=== PATIENT | male | born 1980 | race Caucasian/White ===

== ENCOUNTER 2016-12-30 09:57 | Emergency (ER) | payer BC, OTHER ==
[~2016-12-30] VITALS: Wt 81.0 kg
[2016-12-30] MEDS ORDERED: ALBUTEROL 0.083% (NEB) 2.5 MG/3 ML AMP HHN STA (11:55)
[2016-12-30] MEDS ORDERED: IPRATROPIUM (NEB) 0.5 MG/2.5 ML AMP HHN ONE (12:00)
[2016-12-30] MEDS ORDERED: FLUT9.9S NASAL (12:02)
[2016-12-30] MEDS ORDERED: SODI126M NASAL (12:02)
[2016-12-30] MEDS ORDERED: ALBU18HF INHALATION (12:02)
[2016-12-30] MEDS ORDERED: GUAI473L22 PO (12:02)
--- NOTE | 2016-12-30 12:10 | ERD ---
ER Documentation Chief Complaint Date/Time DATE: 12/30/16 TIME: 12:04 Chief Complaint COUGH AND CONGESTION FOR THE PAST FEW DAYS. NO FEVERS. HPI 36-year-old male complaining of cough and nasal 4-5 days. Cough is nonproductive. Patient reports shortness of breath on exertion. He has on and off chills. He took DayQuil during the day, and NyQuil at night. Patient stated that his roommate has been coughing for the last 3-4 month. There was concern that the roommate may have pertussis. Patient stated that he had last Tdap about 2-3 years ago. ROS All systems reviewed and are negative except as per history of present illness. Medications Home Meds Active Scripts Guaifenesin-Codeine Phosphate* (Guaifenesin* AC Cough Syrup) 473 Ml Liquid, 10 ML PO QHS Y for COUGH, #120 ML Prov:HIRA OCAMPO. CATERER HELPER 12/30/16 Fluticasone Propionate (Flonase Allergy Relief) 9.9 Ml [place].susp, 1 SPRAY NASAL BID, #1 BOTTLE TO EACH NOSTRIL Prov:HIRA OCAMPO. CATERER HELPER 12/30/16 Sodium Chloride (Saline Nasal Mist) 126 Ml Mist, 2 SPRAY NASAL Q2H Y for NASAL CONGESTION, #1 BOTTLE Prov:HIRA OCAMPO CATERER HELPER 12/30/16 Albuterol Sulfate* (Ventolin HFA*) 18 Gm Hfa.aer.ad, 2 PUFF INHALATION Q4H, #1 INHALER Prov:HIRA OCAMPO. CATERER HELPER 12/30/16 Allergies Allergies: Coded Allergies: No Known Allergy (Unverified , 12/30/16) PMhx/Soc Medical and Surgical Hx: pt denies Medical Hx, pt denies Surgical Hx History of Surgery: Yes (kidney stones) Anesthesia Reaction: No Hx Neurological Disorder: No Hx Respiratory Disorders: No Hx Cardiac Disorders: No Hx Psychiatric Problems: No Hx Miscellaneous Medical Probl: No Hx Alcohol Use: Yes Hx Substance Use: No Hx Tobacco Use: No Smoking Status: Never smoker Physical Exam Vitals Vital Signs Date Time Temp Pulse Resp B/P Pulse Ox O2 Delivery O2 Flow Rate FiO2 12/30/16 12:08 85 19 97 21 12/30/16 10:00 98.8 85 20 122/71 98 Physical Exam General: Well-developed, well-nourished, conscious and coherent, in no distress Skin: Warm and dry without rash, good texture and turgor Head: Normocephalic without evidence of trauma Eyes: Sclera and conjunctivae normal; pupils equal, round, and reactive to light; extraocular movements are intact Ears: Canals are patent. Tympanic membranes are clear Nose/Face: Nasal Mucosa erythematous and swollen with clear nasal discharge. Mouth/throat: Mucous membranes are moist. Posterior pharynx clear without erythema or exudates Neck: Supple without meningismus or adenopathy. Carotids are equal. Trachea midline. No bruits or JVD Chest: Normal AP diameter. Good expansion without retractions. Nontender. Lungs are clear to auscultate bilaterally with good tidal volume. Mild wheezing noted in the right upper lobe. Deep breath elicits cough. Heart: Regular rate and rhythm. No murmur, rub, or gallops heard Abdomen: Soft and nontender without masses, guarding, or rebound. Bowel sounds are active. No hepatosplenomegaly Back: Without spinal or CVA tenderness Extremities: Full range of motion. Good strength bilaterally. No clubbing, cyanosis, or edema. Peripheral pulses are intact. Sensation intact Neuro: Alert and oriented 4, GCS 15. Cranial nerves II-XII intact. Motor and sensory exams nonfocal. Moves all extremities. Speech clear. Gait normal Results 24 hrs Current Medications Medications (Trade) Dose Ordered Sig/Freddie Route PRN Reason Start Time Stop Time Status Last Admin Dose Admin Albuterol (Proventil 0.083% (Neb)) 2.5 mg ONCE STAT N 12/30/16 11:55 12/30/16 11:56 DC 12/30/16 12:07 Ipratropium [place] (Atrovent 0.02% (Neb)) 0.5 mg ONCE ONCE N 12/30/16 12:00 12/30/16 12:01 DC 12/30/16 12:07 Procedures/MDM Well-appearing 36-year-old male present ED with his cough and nasal congestion 4-5 days. Patient did have very mild wheezing on exam. Nebulizer treatment with albuterol 2.5 mg and Atrovent 0.5 mg given to the patient. The wheezing has resolved after breathing treatment, however patient stated that he is not feeling any better. Patient refused any further testing, stating that he find out this hospital here is not in network for his insurance. Patient is afebrile, in no respiratory distress. I doubt that patient has pneumonia. Likely patient has viral bronchitis. Low suspicion for pertussis as patient's immunization is up-to-date. Patient appears well, stable for discharge and outpatient management. Medical decision making shared with patient and family. Education provided to patient and family. Patient and family expressed understanding of the plan. Medications on discharge: Albuterol HFA, saline nasal spray, Flonase, guaifenesin with codeine. Follow-up: Primary care provider in 2-3 days or return to ED if worse. Departure Diagnosis: Primary Impression: Viral bronchitis Condition: Good Patient Instructions: Bronchitis, No Antibiotic (Adult) Referrals: [facility] YOU HAVE RECEIVED A MEDICAL SCREENING EXAM AND THE RESULTS INDICATE THAT YOU DO NOT HAVE A CONDITION THAT REQUIRES URGENT TREATMENT IN THE EMERGENCY DEPARTMENT. FURTHER EVALUATION AND TREATMENT OF YOUR CONDITION CAN WAIT UNTIL YOU ARE SEEN IN YOUR DOCTORS OFFICE WITHIN THE NEXT 1-2 DAYS. IT IS YOUR RESPONSIBILITY TO MAKE AN APPOINTMENT FOR FOLOW-UP CARE. IF YOU HAVE A PRIMARY DOCTOR --you should call your primary doctor and schedule an appointment IF YOU DO NOT HAVE A PRIMARY DOCTOR YOU CAN CALL OUR PHYSICIAN REFERRAL HOTLINE AT IF YOU CAN NOT AFFORD TO SEE A PHYSICIAN YOU CAN CHOSE FROM THE FOLLOWING [facility] [address] [facility]. [facility] [address] [facility] [facility] [address] [facility] [facility] [address] [facility]. [facility] [address] [facility]. [facility]. [address] Additional Instructions: Call your primary care doctor TOMORROW for an appointment during the next 2-3 days.See the doctor sooner or return here if your condition worsens before your appointment time. HIRA OCAMPO NP December 30, 2016 12:10
[2016-12-30 12:39] VITALS: BP 117/60; PULSE 67; RESP 17
== END 2016-12-30 12:47 | disposition home or self-care (01) ==
LOC: FTE 09:57
DX: J20.8 Acute bronchitis due to other specified organisms (principal); B97.89 Other viral agents as the cause of diseases classified elsewhere
CPT/HCPCS: 94664